=== PATIENT | male | born 1965 | race African-American/Black ===

== ENCOUNTER 2020-11-13 12:05 | Emergency (ER) | payer OTHER ==
[~2020-11-13] VITALS: Ht 175.3 cm; Wt 81.7 kg
[2020-11-13 12:28] LABS: ABSOLUTE NEUTROPHILS 4.7 thou/uL (1.4-8.2); BASOPHILS 0.6 % (0.0-2.0); EOSINOPHILS 0.4 % (0.0-3.0); HEMATOCRIT 35.5 % (42.0-52.0); HEMOGLOBIN 11.2 gm/dL (14.0-18.0); MCH 31.8 pg (26.0-34.0); MCHC 31.7 g/dL (28.0-37.0); MCV 100.3 fL (80.0-100.0); MONOCYTES 9.2 % (1.0-8.0); PLATELET COUNT 198 thou/uL (150-400); POLYS 64.8 % (36.0-66.0); RBC 3.54 mil/uL (4.50-6.00); RDW 14.6 % (10.5-14.5); WBC 7.2 thou/uL (4.0-11.0)
[2020-11-13 12:49] LABS: ANION GAP 9 mmol/L (7-16); BUN 41 mg/dL (7-18); CHLORIDE 106 mmol/L (98-107); CO2 30 mmol/L (21-32); CREATININE 0.9 mg/dL (0.7-1.3); GLUCOSE 100 mg/dL (74-106); POTASSIUM 3.7 mmol/L (3.5-5.1); SODIUM 145 mmol/L (136-145)
[2020-11-13 12:53] LABS: ALBUMIN 2.9 g/dL (3.4-5.0); DIRECT BILIRUBIN 0.1 mg/dL (<0.1-0.2); TOTAL BILIRUBIN 0.5 mg/dL (0.2-1.0); TOTAL PROTEIN 7.3 g/dL (6.4-8.2)
[2020-11-13 12:58] LABS: TROPONIN-I <0.06 ng/mL (<0.06)
--- NOTE | 2020-11-13 13:08 | EKG ---
[address] [address] ELECTROCARDIOGRAM REPORT Name: MAYRA WILLETT Room #: [facility]#: [id number] Admission: Attend Phys: Discharge: Date of : 67 Report #: [id number] [facility] Test Date: 2020-11-13 Test Time: 12:14:20 Pat Name: MAYRA WILLETT Department: Room: Gender: Test Clerk: KELLEE : 1965 Requested By: Nazario Wilhelm Order Number: [id number] MD: Sharif Hurtado Measurements Intervals [place] Rate: 75 P: 38 NE: 157 QRS: 69 QRSD: 94 T: 67 QT: 420 QTc: 470 Interpretive Statements Sinus rhythm Left atrial enlargement Probable left ventricular hypertrophy Baseline wander in lead(s) V1 No previous ECG available for comparison Electronically Signed On 11-13-2020 13:08:09 CDT by Sharif Hrutado [email or web address] <ELECTRONICALLY SIGNED> By: Sharif Hurtado MD, [facility] 11/13/20 1308 1214 1214 Sharif Hurtado MD, FACC /EPI
[2020-11-13] MEDS ORDERED: ABACAVIR300 MG PO (13:18)
[2020-11-13] MEDS ORDERED: ACETAMINOPHEN500 MG PO (13:20)
[2020-11-13] MEDS ORDERED: AMLODIPINE BESY10 MG PO (13:22)
[2020-11-13] MEDS ORDERED: BACLOFEN 10MG T10 MG PO (13:22)
[2020-11-13] MEDS ORDERED: BIOTENE MOUTHWASH PO (13:24)
[2020-11-13] MEDS ORDERED: DEEP SEA NASAL44 M1 NASAL (13:25)
[2020-11-13] MEDS ORDERED: NEURONTIN 300M300 M2 PO (13:25)
[2020-11-13] MEDS ORDERED: GERI-TUSSI100 MG/5 M PO (13:26)
[2020-11-13] MEDS ORDERED: HYDRALAZINE 5050 MG PO (13:27)
[2020-11-13] MEDS ORDERED: IRON325 PO (13:27)
[2020-11-13] MEDS ORDERED: LASIX 40 MG TAB40 MG PO (13:29)
[2020-11-13] MEDS ORDERED: LIDOCAINE-PRIL1 EACH TOP (13:30)
[2020-11-13] MEDS ORDERED: MECLIZINE HCL25 M1 PO (13:31)
[2020-11-13] MEDS ORDERED: MAGNESIUM OXID400 M1 PO (13:31)
[2020-11-13] MEDS ORDERED: MELOXICAM15 MG PO (13:32)
[2020-11-13] MEDS ORDERED: LOPRESSOR50 MG PO (13:33)
[2020-11-13] MEDS ORDERED: MILK OF MA400 MG/5 M PO (13:33)
[2020-11-13] MEDS ORDERED: MUCINEX600 MG PO (13:34)
[2020-11-13] MEDS ORDERED: RAMIPRIL10 MG PO (13:35)
[2020-11-13] MEDS ORDERED: OMEPRAZOLE 20 M20 M1 PO (13:35)
[2020-11-13] MEDS ORDERED: MIRALAX119 GM PO (13:35)
[2020-11-13] MEDS ORDERED: NEVIRAPINE200 MG PO (13:35)
[2020-11-13] MEDS ORDERED: SPIRONOLACTONE25 MG PO (13:36)
[2020-11-13] MEDS ORDERED: SYMBICORT160 MCG/4. INH (13:37)
[2020-11-13] MEDS ORDERED: TAMSULOSIN HCL0.4 MG PO (13:37)
[2020-11-13] MEDS ORDERED: CEFUROXIME500 MG PO (14:14)
[2020-11-13 16:00] VITALS: BP 126/74
== END 2020-11-13 14:35 | disposition home or self-care (01) ==
LOC: ER 12:05
PROVIDERS: Nurse Practitioner
DX: J18.9 Pneumonia, unspecified organism (principal); M54.9 Dorsalgia, unspecified; Z79.899 Other long term (current) drug therapy

== ENCOUNTER 2020-11-19 15:06 | Inpatient (IN) | payer OTHER ==
[~2020-11-19] VITALS: Ht 175.3 cm; Wt 88.5 kg
[~2020-11-19 15:06] MED LIST: ABACAVIR300 MG PO; ACETAMINOPHEN500 MG PO; AMLODIPINE BESY10 MG PO; BACLOFEN 10MG T10 MG PO; BIOTENE MOUTHWASH PO; CEFUROXIME500 MG PO; DEEP SEA NASAL44 M1 NASAL; GERI-TUSSI100 MG/5 M PO; HYDRALAZINE 5050 MG PO; IRON325 PO; LASIX 40 MG TAB40 MG PO; LIDOCAINE-PRIL1 EACH TOP; LOPRESSOR50 MG PO; MAGNESIUM OXID400 M1 PO; MECLIZINE HCL25 M1 PO; MELOXICAM15 MG PO; MILK OF MA400 MG/5 M PO; MIRALAX119 GM PO; MUCINEX600 MG PO; NEURONTIN 300M300 M2 PO; NEVIRAPINE200 MG PO; OMEPRAZOLE 20 M20 M1 PO; RAMIPRIL10 MG PO; SPIRONOLACTONE25 MG PO; SYMBICORT160 MCG/4. INH; TAMSULOSIN HCL0.4 MG PO
[2020-11-19 15:07] VITALS: BP 167/73
--- NOTE | 2020-11-19 15:28 | EKG ---
[address] [address] ELECTROCARDIOGRAM REPORT Name: MAYRA WILLETT Room #: [facility]#: [id number] Admission: Attend Phys: Discharge: Date of : 67 Report #: [id number] [facility] ED Test Date: 2020-11-19 Test Time: 15:18:40 Pat Name: MAYRA WILLETT Department: Room: Gender: Irrigation Technician: manuelito : 1965 Requested By: Terry Roberts Order Number: [id number] MD: Gregory Cordova Measurements Intervals [place] Rate: 73 P: 36 [place]: 153 QRS: 64 QRSD: 92 T: 60 QT: 411 QTc: 453 Interpretive Statements Sinus rhythm Probable left atrial enlargement Compared to ECG 11/13/2020 12:14:20 No significant changes Electronically Signed On 11-19-2020 15:28:06 CDT by Gregory Cordova [email or web address] <ELECTRONICALLY SIGNED> By: Gregory Cordova MD 11/19/20 1528 1518 1518 Gregory Cordova MD /EPI
[2020-11-19 15:41] LABS: ABSOLUTE NEUTROPHILS 4.7 thou/uL (1.4-8.2); BASOPHILS 0.8 % (0.0-2.0); EOSINOPHILS 0.5 % (0.0-3.0); HEMATOCRIT 32.9 % (42.0-52.0); HEMOGLOBIN 10.3 gm/dL (14.0-18.0); LYMPHOCYTES 18.2 % (24.0-44.0); MCH 31.4 pg (26.0-34.0); MCHC 31.2 g/dL (28.0-37.0); MCV 100.7 fL (80.0-100.0); MONOCYTES 7.4 % (1.0-8.0); PLATELET COUNT 232 thou/uL (150-400); POLYS 73.1 % (36.0-66.0); RBC 3.27 mil/uL (4.50-6.00); RDW 14.9 % (10.5-14.5); WBC 6.5 thou/uL (4.0-11.0)
[2020-11-19 15:52] LABS: ANION GAP 5 mmol/L (7-16); BUN 33 mg/dL (7-18); CALCIUM 9.3 mg/dL (8.5-10.1); CHLORIDE 105 mmol/L (98-107); CO2 32 mmol/L (21-32); GLUCOSE 105 mg/dL (74-106); POTASSIUM 4.6 mmol/L (3.5-5.1); SODIUM 142 mmol/L (136-145)
[2020-11-19 16:01] LABS: ALBUMIN 2.7 g/dL (3.4-5.0); SGOT 23 U/L (15-37); SGPT 19 U/L (16-63); TOTAL BILIRUBIN 0.3 mg/dL (0.2-1.0); TROPONIN-I <0.06 ng/mL (<0.06)
[2020-11-19] MEDS ORDERED: GERI-TUSSI100 MG/5 M PO (16:23)
[2020-11-19] MEDS ORDERED: VITAMIN E1000 UNIT PO (16:27)
[2020-11-19 17:26] VITALS: BP 172/72
[2020-11-19 18:04] VITALS: BP 168/78
[2020-11-19 18:20] VITALS: BP 182/86
[2020-11-19 19:21] VITALS: BP 173/76
[2020-11-20 05:13] VITALS: BP 154/53
[2020-11-20 05:31] LABS: HEMATOCRIT 30.3 % (42.0-52.0); HEMOGLOBIN 9.6 gm/dL (14.0-18.0); MCH 31.8 pg (26.0-34.0); MCHC 31.6 g/dL (28.0-37.0); MCV 100.8 fL (80.0-100.0); RBC 3.01 mil/uL (4.50-6.00); RDW 14.8 % (10.5-14.5); WBC 6.3 thou/uL (4.0-11.0)
[2020-11-20 05:47] LABS: CALCIUM 9.4 mg/dL (8.5-10.1); CREATININE 0.9 mg/dL (0.7-1.3); POTASSIUM 4.2 mmol/L (3.5-5.1)
[2020-11-20 07:17] VITALS: BP 169/61
[2020-11-20 15:28] VITALS: BP 106/44
[2020-11-20 19:47] VITALS: BP 155/56
[2020-11-21 08:17] VITALS: BP 169/77
--- NOTE | 2020-11-21 09:44 | 2DMMODE ---
[facility] [place] [address] 2 D/M-MODE ECHOCARDIOGRAM Name: MAYRA WILLETT Room #: 355-P ADM IN [facility]#: [id number] Admission: 11/19/20 Attend Phys: Macho Drummond MD Discharge: Date of : 67 Report #: [id number] THIS REPORT FOR: cc: John Estrella MD, Ramilo MD Park, Jin S. MD ~ APPROVED REPORT Study performed: 11/21/2020 07:51:09 EXAM: Comprehensive 2D, Doppler, and color-flow Echocardiogram Patient Location: In-Patient Room #: 355 Status: routine BSA: 2.04 HR: 80 bpm BP: 155/56 mmHg Rhythm: NSR Other Information Study Quality: Fair Risk Factors: Cardiac Risk Factors: HTN Indications Congestive Heart Failure Hypertension/HDD HIV 2D Dimensions RVDd: 32.02 mm Volumes Left Atrial Volume (Systole) Single Plane 4CH: 59.26 mL Single Plane 2CH: 86.81 mL Biplane LA Volume: 75.00 mL LA ESV Index: 37.00 mL/m2 Aortic Valve AoV Peak Shaun.: 2.27 m/s AO Peak Gr.: 20.66 mmHg LVOT Max P.74 mmHg LVOT Max V: 1.30 m/s AI Vmax: 5.00 m/s AI [place]: 3.27 m/s2 [facility] [address] [place] [address] 2 D/M-MODE ECHOCARDIOGRAM Name: MAYRA WILLETT Room #: 355-P ADM IN .R.#: [id number] Admission: 11/19/20 Attend Phys: Macho Drummond MD Discharge: Date of : 67 Report #: [id number] AI PHT: 443.10 ms Mitral Valve E/A Ratio: 0.8 MV Decel. Time: 233.03 ms MV E Max Shaun.: 0.87 m/s MV A Shaun.: 1.06 m/s MV PHT: 67.58 ms IVRT: 106.11 ms Tricuspid Valve TR Peak Shaun.: 4.54 m/s RAP Estimate: 10.00 mmHg TR Peak Gr.: 82.40 mmHg RVSP: 92.00 mmHg Left Ventricle The left ventricle is normal size. There is normal LV segmental wall motion. There is normal left ventricular wall thickness. Left ventricular systolic function is normal. The left ventricular ejection fraction is within the normal range. LVEF is 65-70%. Grade II - pseudonormal filling dynamics. Right Ventricle The right ventricle is normal size. The right ventricular systolic function is normal. Atria Left atrium is mildly dilated. The right atrium size is normal. Aortic Valve The aortic valve is not well visualized. Moderate aortic regurgitation. There is no aortic valvular stenosis. Mitral Valve The mitral valve is normal in structure. There is no mitral valve regurgitation noted. No evidence of mitral valve stenosis. Tricuspid Valve The tricuspid valve is normal in structure. Mild to moderate tricuspid regurgitation. PAP > 50 mmHg. Pulmonic Valve Pulmonic valve is not well visualized. There is no pulmonic valvular regurgitation. Great Vessels [facility] [address] [place] [address] 2 D/M-MODE ECHOCARDIOGRAM Name: MAYRA WILLETT Room #: 355-P [facility] IN [facility]#: [id number] Admission: 11/19/20 Attend Phys: Macho Drummond MD Discharge: Date of : 67 Report #: [id number] The aortic root is normal in size. IVC is dilated and collapses <50% with inspiration. Pericardium There is no pericardial effusion. Small right pleural effusion. <Conclusion> The left ventricle is normal size. There is normal left ventricular wall thickness. Left ventricular systolic function is normal. Grade II - pseudonormal filling dynamics. The right ventricle is normal size. Left atrium is mildly dilated. Moderate aortic regurgitation. There is no mitral valve regurgitation noted. Mild to moderate tricuspid regurgitation. <ELECTRONICALLY SIGNED> By: Chadwick Hilton MD 11/21/20 0944 0944 0944 Chadwick Hilton MD /INF
[2020-11-21 11:49] LABS: HEMOGLOBIN 9.8 gm/dL (14.0-18.0); MCH 31.9 pg (26.0-34.0); MCHC 31.5 g/dL (28.0-37.0); MCV 101.3 fL (80.0-100.0); RBC 3.06 mil/uL (4.50-6.00); RDW 14.7 % (10.5-14.5)
[2020-11-21 12:08] LABS: CALCIUM 9.7 mg/dL (8.5-10.1); CREATININE 0.8 mg/dL (0.7-1.3); POTASSIUM 4.2 mmol/L (3.5-5.1)
[2020-11-21 13:48] VITALS: BP 131/57
[2020-11-21 15:24] VITALS: BP 148/69
[2020-11-21 19:31] VITALS: BP 124/54
[2020-11-22 03:16] VITALS: BP 146/63
[2020-11-22 08:25] VITALS: BP 162/74
[2020-11-22 09:04] LABS: HEMATOCRIT 29.5 % (42.0-52.0); HEMOGLOBIN 9.4 gm/dL (14.0-18.0); MCV 99.9 fL (80.0-100.0); RBC 2.95 mil/uL (4.50-6.00); RDW 14.4 % (10.5-14.5); WBC 5.3 thou/uL (4.0-11.0)
[2020-11-22 09:07] LABS: CALCIUM 9.5 mg/dL (8.5-10.1); CREATININE 0.7 mg/dL (0.7-1.3); MAGNESIUM 1.8 mg/dL (1.8-2.4); POTASSIUM 3.9 mmol/L (3.5-5.1)
[2020-11-22 20:00] VITALS: BP 158/56
[2020-11-22 21:00] VITALS: BP 158/56
[2020-11-23 03:17] VITALS: BP 133/65
--- NOTE | 2020-11-23 09:24 | EKG ---
[address] [address] ELECTROCARDIOGRAM REPORT Name: MAYRA WILLETT Room #: 355- ADM IN ..#: [id number] Admission: 11/19/20 Attend Phys: Macho Drummond MD Discharge: Date of : 67 Report #: [id number] [facility] Test Date: 2020-11-23 Test Time: 09:08:26 Pat Name: MAYRA WILLETT Department: Room: 355 Gender: M Behavioral Health Case Manager: KAVITA : 1965 Requested By: Trevon Zaman Order Number: [id number] MD: Ulysses Raines Measurements Intervals [place] Rate: 76 P: 44 MD: 149 QRS: 82 QRSD: 94 T: 42 QT: 414 QTc: 466 Interpretive Statements Sinus rhythm Anteroseptal infarct, age indeterminate Compared to ECG 11/19/2020 15:18:40 Myocardial infarct finding now present Electronically Signed On 11-23-2020 9:24:36 CDT by Ulysses Raines [email or web address] <ELECTRONICALLY SIGNED> By: Ulysses Raines MD, [facility] 11/23/20923 7 7 Ulysses Raines MD, [facility] /EPI
[2020-11-23 09:25] LABS: HEMATOCRIT 32.3 % (42.0-52.0); HEMOGLOBIN 10.1 gm/dL (14.0-18.0); MCH 31.7 pg (26.0-34.0); MCHC 31.3 g/dL (28.0-37.0); RBC 3.2 mil/uL (4.50-6.00); RDW 14.8 % (10.5-14.5); WBC 5.2 thou/uL (4.0-11.0)
[2020-11-23 09:49] LABS: ANION GAP 3 mmol/L (7-16); BUN 27 mg/dL (7-18); CHLORIDE 104 mmol/L (98-107); CO2 37 mmol/L (21-32); CREATININE 0.8 mg/dL (0.7-1.3); GLUCOSE 86 mg/dL (74-106); MAGNESIUM 1.9 mg/dL (1.8-2.4); POTASSIUM 3.8 mmol/L (3.5-5.1); SODIUM 144 mmol/L (136-145); TROPONIN-I <0.06 ng/mL (<0.06)
[2020-11-23 15:14] VITALS: BP 97/68
[2020-11-23 20:25] VITALS: BP 135/61
[2020-11-24 03:47] VITALS: BP 115/72
[2020-11-24 07:26] VITALS: BP 113/53
[2020-11-24 11:11] VITALS: BP 126/63
== END 2020-11-24 16:15 | DRG 291 ==
LOC: ER 15:06 → 3W 17:20 → EROBS 17:20 → 3W 18:16
PROVIDERS: Emergency Medicine; Internal Medicine; ADMIT Hospitalist; ATTEND Hospitalist
DX: I11.0 Hypertensive heart disease with heart failure (principal); J18.9 Pneumonia, unspecified organism; J96.21 Acute and chronic respiratory failure with hypoxia; E43 Unspecified severe protein-calorie malnutrition; G82.50 Quadriplegia, unspecified; G93.40 Encephalopathy, unspecified; I50.9 Heart failure, unspecified; K21.9 Gastro-esophageal reflux disease without esophagitis; G62.9 Polyneuropathy, unspecified; J44.9 Chronic obstructive pulmonary disease, unspecified; E78.5 Hyperlipidemia, unspecified; I71.2 Thoracic aortic aneurysm, without rupture; Z20.822 Contact with and (suspected) exposure to COVID-19; Z86.73 Personal history of transient ischemic attack (TIA), and cerebral infarction without residual deficits; Z68.28 Body mass index [BMI] 28.0-28.9, adult
CPT/HCPCS: 10879